=== PATIENT | male | born 2000 | race Two or more races ===

== ENCOUNTER 2018-06-17 02:13 | Emergency (ER) | payer SELFPAY ==
[~2018-06-17] VITALS: Ht 190.5 cm; Wt 104.5 kg
[~2018-06-17 02:13] MED LIST: ANTIBIOTIC; BACTRIM DS TABL1 TAB PO
[2018-06-17 02:21] VITALS: Ht 190.5 cm; Wt 104.5 kg
[2018-06-17 03:06] VITALS: BP 138/73
== END 2018-06-17 03:06 | disposition home or self-care (01) ==
LOC: D.ER 02:13
DX: S61.011A Laceration without foreign body of right thumb without damage to nail, initial encounter (principal); W25.XXXA Contact with sharp glass, initial encounter